=== PATIENT | female | born 1945 | race Caucasian/White ===

== ENCOUNTER → 2017-12-05 | Outpatient (CLI) | payer BC | LOC: M.RAD 12:53 | DX: Z12.31 Encounter for screening mammogram for malignant neoplasm of breast (principal) ==

== ENCOUNTER → 2018-10-28 | Outpatient (CLI) | payer BC | LOC: M.RAD 13:10 | DX: M85.89 Other specified disorders of bone density and structure, multiple sites (principal); M81.0 Age-related osteoporosis without current pathological fracture; Z78.0 Asymptomatic menopausal state ==

== ENCOUNTER → 2020-01-06 | Outpatient (CLI) | payer BC | LOC: M.RAD 12-31 13:00 | PROVIDERS: ATTEND Family Medicine | DX: Z12.31 Encounter for screening mammogram for malignant neoplasm of breast (principal) ==

== ENCOUNTER → 2020-02-12 | Outpatient (CLI) | payer BC | LOC: M.ULTRA 13:17 | DX: N60.01 Solitary cyst of right breast (principal) ==

== ENCOUNTER → 2020-11-09 | Outpatient (CLI) | payer BC | LOC: M.RAD 15:24 | DX: M81.0 Age-related osteoporosis without current pathological fracture (principal); M85.88 Other specified disorders of bone density and structure, other site ==

== ENCOUNTER → 2021-01-18 | Outpatient (CLI) | payer BC | LOC: M.RAD 12:52 | DX: Z12.31 Encounter for screening mammogram for malignant neoplasm of breast (principal) ==